=== PATIENT | female | born 1945 | race Caucasian/White ===

== ENCOUNTER 2019-06-22 22:15 | Emergency (ER) | payer OTHER ==
--- NOTE | 2019-06-22 22:33 | ED Fall/Injury ---
General Stated Complaint: HIP PAIN Source: patient, EMS Exam Limitations: no limitations History of Present Illness Date Seen by Provider: Jun 22, 2019 Time Seen by Provider: 22:30 Initial Comments Presents via EMS after getting a call to help her up after sliding onto the ground (states she did not fall) from sitting on the "floor cleaner". Pt denies injury, but states she normally can not bear weight on her legs because of bad arthritis. Has also been living in her car since October of 2018. She is diabetic on insulin and has HTN. She is compliant w taking medication and seeing her PCP. No other complaints. She states she did not want to come to the ER, but after she was helped up, EMS staff offered to bring her in to check her vitals, etc. She is without any (acute) complaint. Only chronic leg/ knee pain that is not new. Allergies and Home Medications Patient Home Medication List Home Medication List Reviewed: Yes Review of Systems Review of Systems Constitutional: see HPI; No diaphoresis, No dizziness, No fever, No malaise; weakness Respiratory: No cough, No short of breath Cardiovascular: No chest pain, No palpitations Gastrointestinal: No abdominal pain, No loss of appetite, No vomiting Musculoskeletal: No back pain; joint pain (b/l hips and knees (chronic)); No neck pain Past Icegadg-Nictzk-Iptzns Hx Past Med/Social Hx: Reviewed Nursing Past Med/Soc Hx Patient Social History Recent Foreign Travel: No Contact w/Someone Who Travel: No Physical Exam Vital Signs Capillary Refill : Height, Weight, BMI Height: '" Weight: lbs. oz. kg; BMI Method: General Appearance: no apparent distress, obese, other (very disheveled and soiled appearance w next to no personal hygiene) Neck: non-tender, supple Cardiovascular: regular rate, rhythm, no edema Respiratory: chest non-tender, lungs clear Gastrointestinal: non tender, soft Back: no CVA tenderness, no vertebral tenderness Extremities: normal range of motion, non-tender, normal inspection, no pedal edema, no calf tenderness, normal capillary refill, pelvis stable; No calf tenderness, No pedal edema, No slow capillary refill, No swelling; other (symmetrical weakness and atrophy of LE ms. Able to flex hip joints and lift both legs off table. NO pain w passive ROM b/l LE's. NO significant pain or localizing pain of LE's or pelvis.) Neurologic/Psychiatric: no motor/sensory deficits, alert, normal mood/affect Skin: warm/dry; No jaundice Departure Impression Primary Impression: Weakness generalized Additional Impression: Arthritis Disposition: 01 HOME, SELF-CARE Condition: Stable Departure-Patient Inst. Referrals: NO,LOCAL PHYSICIAN (PCP/Family) Primary Care Physician Patient Instructions: Generalized Weakness, Osteoarthritis (DC) Add. Discharge Instructions: Call your doctor Monday to arrange for a follow-up appointment CHEYENNE NAVARRETE DO Jun 22, 2019 22:33
[2019-06-22 22:40] VITALS: BP 178/78
[2019-06-22] MEDS ORDERED: diphenhydrAMINE 25 MG TAB (BENADRYL) PO ONE (22:45)
--- NOTE | 2019-06-22 22:45 | NUR ---
PT. IS UNKEPT AND HAS MUD AND DIRT ALL OVER HER WELL DOG HAIR. 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
== END 2019-06-22 22:40 | disposition home or self-care (01) ==
LOC: ER FS 22:25
DX: R53.1 Weakness (principal); M19.91 Primary osteoarthritis, unspecified site; E11.9 Type 2 diabetes mellitus without complications; I10 Essential (primary) hypertension; Z79.4 Long term (current) use of insulin
CPT/HCPCS: 99283

== ENCOUNTER 2019-09-12 18:46 | Emergency (ER) | payer MEDICARE ==
[~2019-09-12] VITALS: Ht 149.9 cm; Wt 82.6 kg
--- OUTSIDE RECORDS SUMMARY | 2019-09-12 18:51 | XMS REPORT ---
Author Author Karley WASHINGTON Organization [facility] Address [address] [place] [id number] Care Team Providers Care Cuff Setter Lockstitch Name Role Phone FLORENTINO WASHINGTON Unavailable PROBLEMS Type Condition ICD9-CM Code [id number] Code Onset Dates Condition S tatus SNOMED Code Problem Venous insufficiency (chronic) (peripheral) I87.2 Active 16409641 Problem Essential hypertension I10 Active 44820700 Problem Type 2 diabetes mellitus wit hout complication, without long-term current use of insulin E11.9 Active 406046860 Problem Hypothyroidism, unspecified type E03.9 Active 50479558 Problem 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 of skin L97.801 Active 062875596 Problem Type 2 diabetes mellitus wit h other skin ulcer, without long-term current use of insulin E11.622 Active 60872 9009 Problem Type 2 diabetes mellitus wit h diabetic neuropathy, unspecified whether terminal manager insulin use E11.40 Active 129016 718914067 Problem Morbid (severe) obesity due to excess calories E66 .01 Active 423059672 Problem Chronic venous insufficiency I87.2 A ctive 40220082 Problem Ulcer of left lower extremity, limited to breakdown of ski n L97.921 Active 772723256 ALLERGIES Substance Reaction Event Type Date Status allergic to some blood pressure pills Unknown Non Drug Allergy May, Active ENCOUNTERS Encounter Location Date Diagnosis [facility] [address] [facility] [id number] [address] [place] [address] Nov, [address] [address] Oct, [facility] [address] [address] Aug [facility] [address] [facility] [id number] [address] [place] [address] Aug, Edema of foot R60.0 ; Onycho mycosis B35.1 and Type 2 diabetes mellitus with diabetic neuropathy, unspecified whether terminal manager insulin use E11.40 [place] [address] [place] [address] Jun [place] [address] [place] [address] Jun Cellulitis of left lower extremity L03.116 and Chronic venous insufficiency I87.2 [place] [address] [place] [address] Jun [place] [address] [place] [address] Jun [place] [address] [place] [address] Jun [place] [address] [place] [address] May Cellulitis of left lower extremity L03.116 and Lower extremity edema R60.0 [place] [address] [place] [address] May Hypothyroidism, unspecified type E03.9 [facility] [address] [facility] [id number] [address] [place] [address] May, [address] [address] [address] May Cellulitis of left lower extremity L03.[address] [address] May, [address] [address] May, Type 2 diabetes mellitus without complic ation, without long-term current use of insulin E11.9 ; Lower extremity edema R60.0 ; Chronic venous insufficiency I87.2 ; Ulcer of left lower extremity, limited to breakdown of skin L97.921 ; Cellulitis of left lower extremity L03.116 and Encounter for immunization Z23 [address] [address] [address] May [place] [address] [place] [address] May Cellulitis of left lower extremity L03.[address] [address] Apr Cellulitis of left lower extremity L03.116 ; Essential hypertension I10 and Type 2 diabetes mellitus without complication, without long-term current use of insulin E11.9 [place] [address] [place] [address] [address] Apr Cellulitis of left lower extremity L03.116 ; Venous insufficiency (chronic) (peripheral) I87.2 and Non-pressure chronic ulcer of other part of unspecified lower leg limited to breakdown of skin L97.[address] [address] [address] [address] Mar Bronchitis J40 and Cellulitis of left lower extremity L03.116 [facility] [address] [id number] [address] [place] [id number] Oct, Encounter for dental examina tion Z01.20 IMMUNIZATIONS No Known Immunizations SOCIAL HISTORY Never Assessed REASON FOR VISIT Leg, Both legs are blistered and itching, pt has seen Chris. They cultured b ut she has not heard anything. HEIDI Moses PLAN OF CARE Activity Details Follow Up 1 Week Reason: VITAL SIGNS Height 60 in 2018-06-05 Weight 182 lbs 2018-06-05 Temperature 98.0 degrees Fahrenheit 2018-06-05 Heart Rate 80 bpm 2018-06-05 Respiratory Rate 16 2018-06-05 BMI 35.54 kg/m2 2018-06-05 Blood pressure systolic 120 mmHg 2018-06-05 Blood pressure diastolic 70 mmHg 2018-06-05 MEDICATIONS Medication Instructions Dosage Frequency Start Date End Date Duration S tatus Sitagliptin Phosphate 100 MG Orally Once a day 1 tablet 24h Active Januvia 100 MG Orally Once a day 1 tablet 24h May, 3 0 day(s) Active Losartan Potassium 50 MG Orally Once a day 1 tablet 24h Active Bactrim DS 800-160 mg Orally Twice a day 1 tablet 12h May, 10 day(s) Active Verapamil HCl 120 MG Orally Three times a day 1 tablet 8h Active Keflex 500 MG Orally every 12 hrs 1 capsule 12h May, 10 day(s) Active DiphenhydrAMINE HCl (Sleep) 25 MG Orally Once a day 1 tablet at bedtim e 24h Active Triamcinolone Acetonide 0.1 % Externally Twice a day 1 appli cation to affected area 12h Active Levothyroxine Sodium 100 MCG Active Gabapentin 100 MG Active Spironolactone 25 MG Orally BID 2 tabs 12h May, 30 day(s) Active Hydrochlorothiazide 25 MG Orally Once a day 1 tablet 24h Active Olopatadine HCl 0.2 % Ac tive Fluticasone Propionate (Inhal) 50 MCG/BLIST Inhalation Twice a day 1 puff 12h Active Metformin HCl 500 MG Orally 2 times a day 1 tablet with a meal 12h 30 day(s) Active Spironolactone 50 MG Orally 2 times a day 1 tablet with food 12h May, 30 day(s) Active Glucose Blood - as directed Once a day as directed 24h May, 30 days Active RESULTS No Results PROCEDURES Procedure Date Ordered Result Body Site VENIPUNCT, ROUTINE* June 05, 2018 LAB NOT BILLED BY [facility] June 05, 2018 INSTRUCTIONS MEDICATIONS ADMINISTERED No Known Medications MEDICAL (GENERAL) HISTORY Type Description Date Medical History diabetes type II Medical History htn Medical History bronchitis Medical History hypothyroiditis Medical History hepatitus C Medical History Uterine Cancer Medical History Scriosis of the Liver - arrested Medical History hives from nerves Medical History sleep apnea Medical History carpal [place] bilaterally no surgery Surgical History appendectomy Surgical History hysterectomy Surgical History gallbladder Surgical History miniscus repair of the knees bilaterally Hospitalization History only for above surgeries
--- OUTSIDE RECORDS SUMMARY | 2019-09-12 18:51 | XMS REPORT ---
Author Author Karley WASHINGTON Organization [facility] Address [address] [address] Care Team Providers Care Natural Resource Economist Name Role Phone FLORENTINO WASHINGTON Unavailable PROBLEMS Type Condition ICD9-CM Code ALI61-QT Code Onset Dates Condition S tatus SNOMED Code Problem Essential hypertension I10 Active 21306602 Problem Morbid (severe) obesity due to excess calories E66 .01 Active 877922058 Problem Type 2 diabetes mellitus wit h diabetic neuropathy, unspecified whether intermediate school teacher insulin use E11.40 Active 243188 456195299 Problem 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 of skin L97.801 Active 387731848 Problem Hammer toe, unspecified laterality M20.40 Active 718383743 Problem Type 2 diabetes mellitus wit hout complication, without long-term current use of insulin E11.9 Active 093765909 Problem COPD exacerbation J44.1 Active 19 2551641 Problem Venous insufficiency (chronic) (peripheral) I87.2 Active 06169512 Problem Ulcer of left lower extremity, limited to breakdown of ski n L97.921 Active 129632486 Problem Chronic venous insufficiency I87.2 A ctive 12089503 Problem Hypothyroidism, unspecified type E03.9 Active 98098982 Problem Type 2 diabetes mellitus wit h other skin ulcer, without long-term current use of insulin E11.622 Active 99341 9009 ALLERGIES Substance Reaction Event Type Date Status allergic to some blood pressure pills Unknown Non Drug Allergy May, Active ENCOUNTERS Encounter Location Date Diagnosis [facility] [address] [facility] [place] [address] Apr, [facility] [address] [facility] [id number] [place] [address] Apr, [place] [address] [place] [address] Mar, [address] [place] [address] Mar, [facility] [address] [place] [address] Feb, COPD exacerbation J44.1 ; Vi ral URI J06.9 and Cough R05 [facility] [address] [place] [id number] [place] [address] Jan, Type 2 diabetes mellitus with diabetic neuropathy, unspecified whether correction insulin use E11.40 [address] [place] [address] Dec, Type 2 diabetes mellitus wit h diabetic neuropathy, unspecified whether intermediate school teacher insulin use E11.40 and Influenza vaccination declined Z28.21 [address] [place] [address] Dec, [address] [place] [address] Dec, [facility] [address] [facility] [place] [address] Dec, [address] [place] [address] Dec, [address] [place] [address] Dec, Type 2 diabetes mellitus wit h diabetic neuropathy, unspecified whether intermediate school teacher insulin use E11.40 ; Muscle cramp R25.2 and Influenza vaccine refused Z28.21 [facility] [address] [place] [id number] [address] Nov, Abnormal CBC R79.89 [facility] [address] [facility] [place] [address] Nov, Onychomycosis B35.1 ; Type 2 diabetes me llitus with other skin ulcer, without long-term current use of insulin E11.622 and Hammer toe, unspecified laterality M20.[address] [place] [address] 05 Nov, 2018 Type 2 diabetes mellitus wit h diabetic neuropathy, unspecified whether intermediate school teacher insulin use E11.40 and Hypothyroidism, unspecified type E03.9 [facility] [address] [facility] [address] [place] [address] 05 Nov, [address] [facility] [address] [facility] [id number] [place] [address] Nov, [place] [address] [place] [address] Aug, [facility] [address] [place] [id number] [place] [address] Aug, Edema of foot R60.0 ; Onychomycosis B35. 1 and Type 2 diabetes mellitus with diabetic neuropathy, unspecified whether intermediate school teacher insulin use E11.40 [place] [address] [place] [address] Jun, [place] [address] [place] [address] Jun, Cellulitis of left lower extremity L03.116 and Chronic venous insufficiency I87.2 [place] [address] [place] [address] Jun, [place] [address] [place] [address] Jun, [place] [address] [place] [address] Jun, [place] [address] [place] [address] May, Cellulitis of left lower extremity L03.116 and Lower extremity edema R60.0 [place] [address] [place] [address] May, Hypothyroidism, unspecified type E03.9 [facility] [address] [place] [id number] [place] [address] May, [place] [address] [place] [address] May, [facility] [address] [place], [place] [id number] [place] [address] May, Cellulitis of left lower extremity L03.116 [facility] [address] [facility] [place] [address] May, [address] [place] [address] May, Type 2 diabetes mellitus wit hout complication, without long-term current use of insulin E11.9 ; Lower extremity edema R60.0 ; Chronic venous insufficiency I87.2 ; Ulcer of left lower extremity, limited to breakdown of skin L97.921 ; Cellulitis of left lower extremity L03.116 and Encounter for immunization Z23 [place] [address] [place] [address] May, [place] [address] [place] [address] May, [place] [address] [place] [address] May, Cellulitis of left lower extremity L03.116 [place] [address] [place] [address] 9 Apr, Cellulitis of left lower extremity L03.116 ; Essential hypertension I10 and Type 2 diabetes mellitus without complication, without long-term current use of insulin E11.9 [place] [address] [place] [address] Apr, [place] [address] [place] [address] 9 Apr, Cellulitis of left lower extremity L03.116 ; Venous insufficiency (chronic) (peripheral) I87.2 and Non-pressure chronic ulcer of other part of unspecified lower leg limited to breakdown of skin L97.801 [place] [address] [place] [address] Apr, [place] [address] [place] [address] 9 Mar, [facility] [address] [place] [id number] [place] [address] Mar, Bronchitis J40 and Cellulitis of left lower extremity L03.116 [facility] [address] [id number] [place] [id number] Oct, Encounter for dental examination Z01.20 IMMUNIZATIONS No Known Immunizations SOCIAL HISTORY Never Assessed REASON FOR VISIT F/U leg - JÚNIOR acosta PLAN OF CARE Activity Details Follow Up 2 Months Reason:labs VITAL SIGNS Height 60 in 2018-06-12 Weight 183 lbs 2018-06-12 Temperature 97.6 degrees Fahrenheit 2018-06-12 Heart Rate 84 bpm 2018-06-12 Respiratory Rate 14 2018-06-12 BMI 35.74 kg/m2 2018-06-12 Blood pressure systolic 122 mmHg 2018-06-12 Blood pressure diastolic 68 mmHg 2018-06-12 MEDICATIONS Medication Instructions Dosage Frequency Start Date End Date Duration S tatus Glucose Blood - as directed Once a day as directed 24h May, 30 days Active Spironolactone 50 MG Orally 2 times a day 1 tablet with food 12h May, 30 day(s) Active Levothyroxine Sodium 100 MCG Active Verapamil HCl 120 MG Orally Three times a day 1 tablet 8h Active Keflex 500 MG Orally every 12 hrs 1 capsule 12h May, 10 day(s) Active Spironolactone 25 MG Orally BID 2 tabs 12h May, 30 day(s) Active Misc. Devices - as directed May, Active Hydrochlorothiazide 25 MG Orally Once a day 1 tablet 24h Active Sitagliptin Phosphate 100 MG Orally Once a day 1 tablet 24h Active Bactrim DS 800-160 mg Orally Twice a day 1 tablet 12h May, 10 day(s) Active Losartan Potassium 50 MG Orally Once a day 1 tablet 24h Active DiphenhydrAMINE HCl (Sleep) 25 MG Orally Once a day 1 tablet at bedtim e 24h Active Gabapentin 100 MG Active Olopatadine HCl 0.2 % Ac tive Triamcinolone Acetonide 0.1 % Externally Twice a day 1 appli cation to affected area 12h Active Metformin HCl 500 MG Orally 2 times a day 1 tablet with a meal 12h 30 day(s) Active Fluticasone Propionate (Inhal) 50 MCG/BLIST Inhalation Twice a day 1 puff 12h Active Januvia 100 MG Orally Once a day 1 tablet 24h 13 May, 2018 3 0 day(s) Active Levothyroxine Sodium 125 MCG Orally Once a day 1 tablet on an empty stomach in the morning 24h May, 30 day(s) Active RESULTS No Results PROCEDURES Procedure Date Ordered Result Body Site [facility] VISIT ESTABLISHED PATIENT June 12, 2018 INSTRUCTIONS MEDICATIONS ADMINISTERED No Known Medications [...]
--- OUTSIDE RECORDS SUMMARY | 2019-09-12 18:51 | XMS REPORT ---
Author Karley Fernández [facility] eClinicalWorks Address Unknown Phone Unavailable Care Team Providers Care Ocean Rescue Lieutenant Name Role Phone JOHNIE JACOBSON CP Unavailable Allergies, Adverse Reactions, Alerts Substance Reaction Event Type N.K.D.A. Info Not Available Non Drug Allergy Problems Problem Type Condition Code Onset Dates Condition Statu s Assessment Encounter for dental examination Z01.20 Active Problem Encounter for dental examination Z01.20 Active Medications Medication Code System Code Instructions Start Date End Date Status Dosage Sitagliptin Phosphate [facility] [address]-49 100 MG Orally Once a day 1 tablet Verapamil HCl [facility] [address]-06 120 MG Orally Three times a day 1 tablet Olopatadine HCl [facility] [address]-87 0.2 % Ophthalmic not defined DiphenhydrAMINE HCl (Sleep) [facility] [address]-44 25 MG Orally Once a da y 1 tablet at bedtime Fluticasone Propionate (Inhal) [facility] [address]-52 5 0 MCG/BLIST Inhalation Twice a day 1 [place] [address]-77 50 MG Orally Once a day 1 tablet Hydrochlorothiazide [facility] [address]-02 25 MG Orally Once a day 1 tablet Levothyroxine Sodium [facility] [address]-00 100 MCG Orally not defined Gabapentin [facility] [address]-92 100 MG Orally not defined Triamcinolone Acetonide [facility] [address]-30 0.1 % Externally Twice a d ay 1 application to affected area Procedures Procedure Coding System Code Date INTRAORL-PERIAPICAL EA ADD FILM CPT-4 D0230 Nov 05, 2015 INTRAORL-PERIAPICAL EA ADD FILM CPT-4 D0230 Nov 05, 2015 INTRAORL-PERIAPICAL 1 FILM 54730 CPT-4 D0220 Nov 05, 2015 BITEWINGS - FOUR FILMS CPT-4 D0274 Nov 04, 2 016 Vital Signs Date/Time: Nov 05, 2015 Blood Pressure Diastolic 70 mmHg Blood Pressure Systolic 125 mmHg Results No Known Results Summary Purpose eClinicalWorks Submission
--- OUTSIDE RECORDS SUMMARY | 2019-09-12 18:52 | XMS REPORT | Continuity of Care Document ---
Author Organization Unknown Address Unknown Phone Unavailable Allergies Active Description Code Type Severity Reaction Onset Reported/Identified Relationship to Patient Clinical Status Yes No Allergy Information Available [id number] Drug Allergy Unknown N/A 020 Medications There is no data. Problems Date Dx Coded Attending Type Code Diagnosis Diagnosed By 06/22/2019 ROVENSTINE DOCHEYENNE Ot E11.9 TYPE 2 DIABETES MELLITUS WITHOUT COMPLIC 06/22/2019 ROVENSTINE DO, CHEYENNE Francisco Ot I10 ESSENTIAL (PRIMARY) HYPERTENSION 06/22/2019 ROVENSTINE DO, CHEYENNE Francisco Ot M19.91 PRIMARY OSTEOARTHRITIS, UNSPECIFIED SITE 06/22/2019 ROVENSTINE DO, CHEYENNE L Ot M25.551 PAIN IN RIGHT HIP 06/22/2019 ROVENSTINE DO, CHEYENNE L Ot R53.1 WEAKNESS 06/22/2019 ROVENSTINE DO, CHEYENNE L Ot Z79.4 LONGTERM (CURRENT) USE OF INSULIN 06/24/2019 ROVENSTINE DO, CHEYENNE Francisco Ot E11.9 TYPE 2 DIABETES MELLITUS WITHOUT COMPLIC 06/24/2019 ROVENSTINE DO, CHEYENNE L Ot I10 ESSENTIAL (PRIMARY) HYPERTENSION 06/24/2019 ROVENSTINE DO, CHEYENNE L Ot M19.91 PRIMARY OSTEOARTHRITIS, UNSPECIFIED SITE 06/24/2019 ROVENSTINE DO, CHEYENNE L Ot M25.551 PAIN IN RIGHT HIP 06/24/2019 ROVENSTINE DO, CHEYENNE L Ot R53.1 WEAKNESS 06/24/2019 ROVENSTINE DO, CHEYENNE L Ot Z79.4 LONGTERM (CURRENT) USE OF INSULIN Procedures There is no data. Results Test Result Range CULTURE, ANAEROBIC AND AEROBIC - 9 10:35 CULTURE, ANAEROBIC BACTERIA W/GRAM STAIN SEE NOTE NRG CULTURE, AEROBIC BACTERIA SEE NOTE NRG TSH w/ FREE T4 - 06/05/18 08:40 TSH 10.44 mIU/L 0.40-4.50 T4, FREE 0.9 ng/dL 0.8-1.8 HEPATITIS PROFILE - 06/05/18 08:40 HEPATITIS A IGM NON-REACTIVE NON-REACTI VE HEPATITIS B SURFACE ANTIGEN NON-REACTIVE NON-REACTIVE HEPATITIS B CORE ANTIBODY (IGM) NON-REACTIVE NON-REACTIVE HEPATITIS C ANTIBODY NON-REACTIVE NON-R EACTIVE SIGNAL TO CUT-OFF 0.07 <1.00 BMP - 06/05/18 08:40 GLUCOSE 147 mg/dL 65-99 UREA NITROGEN (BUN) 17 mg/dL 7-25 CREATININE 0.56 mg/dL 0.60-0.93 eGFR NON-AFR. DJIBOUTIAN 93 mL/min/1.73m2 > OR = 60 eGFR 107 mL/min/1.73m2 > OR = 60 BUN/CREATININE RATIO 30 (calc) 6-22 SODIUM 140 mmol/L 135-146 POTASSIUM 4.1 mmol/L 3.5-5.3 CHLORIDE 103 mmol/L 98-110 CARBON DIOXIDE 28 mmol/L 20-32 CALCIUM 8.8 mg/dL 8.6-10.4 CULTURE, ANAEROBIC AND AEROBIC - 9 16:26 CULTURE, ANAEROBIC BACTERIA W/GRAM STAIN SEE NOTE NRG CULTURE, AEROBIC BACTERIA SEE NOTE NRG CMP - 11/22/18 11:29 GLUCOSE 149 mg/dL 65-99 UREA NITROGEN (BUN) 17 mg/dL 7-25 CREATININE 0.92 mg/dL 0.60-0.93 eGFR NON-AFR. DJIBOUTIAN 61 mL/min/1.73m2 > OR = 60 eGFR 71 mL/min/1.73m2 > OR = 60 BUN/CREATININE RATIO NOT APPLICABLE (calc) 6-22 SODIUM 139 mmol/L 135-146 POTASSIUM 4.7 mmol/L 3.5-5.3 CHLORIDE 102 mmol/L 98-110 CARBON DIOXIDE 27 mmol/L 20-32 CALCIUM 9.5 mg/dL 8.6-10.4 PROTEIN, TOTAL 7.8 g/dL 6.1-8.1 ALBUMIN 3.6 g/dL 3.6-5.1 GLOBULIN 4.2 g/dL (calc) 1.9-3.7 ALBUMIN/GLOBULIN RATIO 0.9 (calc) 1.0-2. 5 BILIRUBIN, TOTAL 0.9 mg/dL 0.2-1.2 ALKALINE PHOSPHATASE 146 U/L 33-130 AST 42 U/L 10-35 ALT 28 U/L 6-29 CBC - 11/22/18 11:29 WHITE BLOOD CELL COUNT 5.8 Thousand/uL 3 .8-10.8 RED BLOOD CELL COUNT 4.81 Million/uL 3.8 0-5.10 HEMOGLOBIN 16.2 g/dL 11.7-15.5 HEMATOCRIT 48.0 % 35.0-45.0 MCV 99.8 fL 80.0-100.0 MCH 33.7 pg 27.0-33.0 MCHC 33.8 g/dL 32.0-36.0 RDW 12.9 % 11.0-15.0 PLATELET COUNT 89 Thousand/uL 140-400 MPV 12.0 fL 7.5-12.5 ABSOLUTE NEUTROPHILS 3068 cells/uL 1500- 7800 ABSOLUTE LYMPHOCYTES 1531 cells/uL 850-3 900 ABSOLUTE MONOCYTES 655 cells/uL 200-950 ABSOLUTE EOSINOPHILS 505 cells/uL 15-500 ABSOLUTE BASOPHILS 41 cells/uL 0-200 NEUTROPHILS 52.9 % NRG LYMPHOCYTES 26.4 % NRG MONOCYTES 11.3 % NRG EOSINOPHILS 8.7 % NRG BASOPHILS 0.7 % NRG A1C - 12/27/18 13:16 HEMOGLOBIN A1c 8.8 % of total Hgb <5.7 TSH w/ FREE T4 - 06/26/19 11:40 TSH 11.01 mIU/L 0.40-4.50 T4, FREE 1.1 ng/dL 0.8-1.8 VITAMIN D, 25-H - 06/26/19 11:40 VITAMIN D,25-OH,TOTAL,IA 12 ng/mL 30-10 0 Encounters ACCT No. Visit Date/Time Discharge Status Pt. Type Provider Facility Loc./Unit Complaint [id number] 06/26/2019 10:40:00 06/26/2019 23:59: 59 CLS Outpatient [facility] [id number] 06/26/2019 10:40:00 Document Registration [id number] 12/27/2018 11:00:00 Document Registration [id number] 11/22/2018 09:00:00 Document Registration [id number] 07/11/2018 15:00:00 Document Registration [id number] 06/05/2018 10:40:00 Document Registration [id number] 05/30/2018 09:00:00 Document Registration [id number] 06/22/2019 22:25:00 020 22:40:00 DIS Emergency CHEYENNE NAVARRETE DO [facility] ER FS HIP PAIN
[2019-09-12 19:17] LABS: BASOPHILS % (AUTO) 1 % (0-10); EOSINOPHILS % (AUTO) 5 % (0-10); HEMATOCRIT 40 % (35-52); HEMOGLOBIN 13.9 G/DL (11.5-16.0); LYMPHOCYTES % (AUTO) 18 % (12-44); MEAN CORPUSCULAR HEMOGLOBIN 34 PG (25-34); MEAN CORPUSCULAR HGB CONC 35 G/DL (32-36); MEAN CORPUSCULAR VOLUME 99 FL (80-99); MEAN PLATELET VOLUME 11.5 FL (7.4-10.4); MONOCYTES % (AUTO) 10 % (0-12); NEUTROPHILS # (AUTO) 3.7 X 10^3 (1.8-7.8); NEUTROPHILS % (AUTO) 66 % (42-75); PLATELET COUNT 73 10^3/uL (130-400); RED CELL DISTRIBUTION WIDTH 13.8 % (10.0-14.5); WHITE BLOOD COUNT 5.6 10^3/uL (4.3-11.0)
[2019-09-12 19:18] LABS: EOSINOPHILS # (AUTO) 0.3 10^3/uL (0.0-0.3); MONOCYTES # (AUTO) 0.6 X 10^3 (0.0-1.0)
[2019-09-12 19:26] LABS: INR 1.1 (0.8-1.4); PROTHROMBIN TIME PATIENT 14.9 SEC (12.2-14.7)
[2019-09-12 19:38] LABS: BACTERIA,URINE LARGE /HPF; BILIRUBIN,URINE 2+ (NEGATIVE); CLARITY,URINE TURBID; COLOR,URINE BROWN; GLUCOSE, URINE (UA) 1+ (NEGATIVE); KETONES,URINE TRACE (NEGATIVE); LEUKOCYTE ESTERASE ,URINE 2+ (NEGATIVE); NITRITE,URINE POSITIVE (NEGATIVE); PH,URINE 8.5 (5-9); PROTEIN,URINE 3+ (NEGATIVE); RBC,URINE >100 /HPF; WBC,URINE TNTC /HPF
[2019-09-12 19:39] LABS: ALANINE AMINOTRANSFERASE 30 U/L (0-55); ALBUMIN 2.7 GM/DL (3.2-4.5); ALKALINE PHOSPHATASE 128 U/L (40-136); BILIRUBIN,TOTAL 0.8 MG/DL (0.1-1.0); BUN/CREATININE RATIO 36; CALCIUM 8.4 MG/DL (8.5-10.1); CARBON DIOXIDE 23 MMOL/L (21-32); CHLORIDE 104 MMOL/L (98-107); CREATININE SERUM 0.53 MG/DL (0.60-1.30); GFR ESTIMATED > 60; GLUCOSE 283 MG/DL (70-105); POTASSIUM 3.5 MMOL/L (3.6-5.0); SODIUM 140 MMOL/L (135-145); TOTAL PROTEIN 5.7 GM/DL (6.4-8.2)
--- NOTE | 2019-09-12 19:43 | ED General ---
General Chief Complaint: Female Reproductive Stated Complaint: VAGINAL BLEEDING Nursing Triage Note: PT TO ROOM FS06 VIA EMS WITH C/O VAGINAL BLEEDING. PT REPORTS HAVING CANCER IN THE LIVER THAT HAS "ATE ITS WAY INTO" HER VAGINAL AREA. Nursing Sepsis Screen: No Definite Risk Source of Information: Patient Exam Limitations: No Limitations History of Present Illness Date Seen by Provider: Sep 12, 2019 Time Seen by Provider: 18:50 Initial Comments Patient is a 73-year-old female with history of liver cancer with metastatic disease who presents with suprapubic pain and dysuria. Patient reports blood in her diaper. Denies fever chills, black pain. No nausea vomiting or sweats. No history of kidney stones. Patient states she has had prior episodes of vaginal bleeding and cystitis. Previous hysterectomy. Patient is not on blood thinners. No other acute symptoms or complaints. Timing/Duration: 4-6 Hours Severity: Mild Modifying Factors: improves with Other Associated Systoms: Denies Symptoms Allergies and Home Medications Allergies Coded Allergies: No Known Drug Allergies (Unverified , 09/12/19) Patient Home Medication List Home Medication List Reviewed: Yes Review of Systems Review of Systems Constitutional: see HPI EENTM: see HPI Respiratory: see HPI Cardiovascular: see HPI Gastrointestinal: see HPI Genitourinary: see HPI Musculoskeletal: see HPI Skin: see HPI Psychiatric/Neurological: See HPI Hematologic/Lymphatic: See HPI Immunological/Allergic: see HPI Past Kugsfif-Tdihnb-Vrzrvr Hx Past Med/Social Hx: Reviewed Nursing Past Med/Soc Hx Patient Social History Alcohol Use: Denies Use Recreational Drug Use: No Smoking Status: Former Smoker Type Used: Cigars 2nd Hand Smoke Exposure: No Recent Foreign Travel: No Contact w/Someone Who Travel: No Recent Infectious Disease Expo: No Recent Hopitalizations: No Physical Abuse: No Sexual Abuse: No Mistreated: No Fear: No Seasonal Allergies Seasonal Allergies: No Past Medical History Surgeries: Yes Adenoidectomy, Gallbladder, Hysterectomy, Orthopedic, Tonsillectomy Respiratory: Yes Sleep Apnea Currently Using CPAP: No Currently Using BIPAP: No Cardiac: Yes Hypertension Neurological: Yes Stroke Genitourinary: No Gastrointestinal: Yes (HEP C) Hepatitis Musculoskeletal: Yes (BILAT KNEE SURGERY) Endocrine: Yes Diabetes, Insulin dep HEENT: No Cancer: Yes Liver Did You Recieve Any Treatments: No Psychosocial: Yes Anxiety Integumentary: No Blood Disorders: No Physical Exam Vital Signs Vital Signs - First Documented 09/12/19 18:50 Temp 37.0 Pulse 109 Resp 21 B/P (MAP) 117/61 (79) O2 Delivery Room Air Capillary Refill : Less Than 3 Seconds Height, Weight, BMI Height: '" Weight: lbs. oz. kg; 36.00 BMI Method: General Appearance: No Apparent Distress, WD/WN, Anxious Eyes: Bilateral Eye Normal Inspection, Bilateral Eye PERRL, Bilateral Eye EOMI HEENT: PERRL/EOMI, TMs Normal, Normal ENT Inspection Neck: Full Range of Motion, Normal Inspection, Supple Respiratory: Lungs Clear Cardiovascular: Regular Rate, Rhythm Gastrointestinal: Normal Bowel Sounds, Soft, Tenderness (suprapubic) Back: Normal Inspection Neurologic/Psychiatric: Alert, Oriented x3 Skin: Other (brawny) Focused Exam Sepsis Stage: Ruled Out Progress/Results/Core Measures Suspected Sepsis Recent Fever Within 48 Hours: No Infection Criteria Present: None New/Unexplained Altered Menta: No Sepsis Screen: No Definite Risk SIRS Temperature: Pulse: 109 Respiratory Rate: 21 Laboratory Tests 09/12/19 19:06: White Blood Count 5.6 Blood Pressure 117 /61 Mean: 79 Laboratory Tests 09/12/19 19:06: Creatinine 0.53L, INR Comment 1.1, Platelet Count 73L, Total Bilirubin 0.8 Results/Orders Lab Results Laboratory Tests Test 09/12/19 17:24 09/12/19 19:06 Range/Units Urine Color BROWN H Urine Clarity TURBID Urine pH 8.5 5-9 Urine Specific [place] 1.015 L 1.016-1.022 Urine Protein 3+ H NEGATIVE Urine Glucose (UA) 1+ H NEGATIVE Urine Ketones TRACE H NEGATIVE Urine Nitrite POSITIVE H NEGATIVE Urine Bilirubin 2+ H NEGATIVE Urine Urobilinogen 4.0 < = 1.0 MG/DL Urine Leukocyte Esterase 2+ H NEGATIVE Urine RBC (Auto) 3+ H NEGATIVE Urine RBC >100 H /HPF Urine WBC TNTC H /HPF Urine Crystals NONE /LPF Urine Bacteria LARGE H /HPF Urine Casts NONE /LPF Urine Mucus NEGATIVE /LPF Urine Culture Indicated YES White Blood Count 5.6 4.3-11.0 10^3/uL Red Blood Count 4.07 L 4.35-5.85 10^6/uL Hemoglobin 13.9 11.5-16.0 G/DL Hematocrit 40 35-52 % Mean Corpuscular Volume 99 80-99 FL Mean Corpuscular Hemoglobin 34 25-34 PG Mean Corpuscular Hemoglobin Concent 35 32-36 G/DL Red Cell Distribution Width 13.8 10.0-14.5 % Platelet Count 73 L 130-400 10^3/uL Mean Platelet Volume 11.5 H 7.4-10.4 FL Neutrophils (%) (Auto) 66 42-75 % Lymphocytes (%) (Auto) 18 12-44 % Monocytes (%) (Auto) 10 0-12 % Eosinophils (%) (Auto) 5 0-10 % Basophils (%) (Auto) 1 0-10 % Neutrophils # (Auto) 3.7 1.8-7.8 X 10^3 Lymphocytes # (Auto) 1.0 1.0-4.0 X 10^3 Monocytes # (Auto) 0.6 0.0-1.0 X 10^3 Eosinophils # (Auto) 0.3 0.0-0.3 10^3/uL Basophils # (Auto) 0.0 0.0-0.1 10^3/uL Prothrombin Time 14.9 H 12.2-14.7 SEC INR Comment 1.1 0.8-1.4 Activated Partial Thromboplast Time 31 24-35 SEC Sodium Level 140 135-145 MMOL/L Potassium Level 3.5 L 3.6-5.0 MMOL/L Chloride Level 104 98-107 MMOL/L Carbon Dioxide Level 23 21-32 MMOL/L Anion Gap 13 5-14 MMOL/L Blood Urea Nitrogen 19 H 7-18 MG/DL Creatinine 0.53 L 0.60-1.30 MG/DL Estimat Glomerular Filtration Rate > 60 BUN/Creatinine Ratio 36 Glucose Level 283 H 70-105 MG/DL Calcium Level 8.4 L 8.5-10.1 MG/DL Corrected Calcium 9.4 8.5-10.1 MG/DL Total Bilirubin 0.8 0.1-1.0 MG/DL Aspartate Amino Transf (AST/SGOT) 37 H 5-34 U/L Alanine Aminotransferase (ALT/SGPT) 30 0-55 U/L Alkaline Phosphatase 128 40-136 U/L Total Protein 5.7 L 6.4-8.2 GM/DL Albumin 2.7 L 3.2-4.5 GM/DL My Orders Orders - KIM HOFFMAN DO Cbc With Automated Diff (09/12/19 18:53) Comprehensive Metabolic Panel (09/12/19 18:53) Protime With Inr (09/12/19 18:53) Partial Thromboplastin Time (09/12/19 18:53) Ua Culture If Indicated (09/12/19 18:53) Straight Cath (Urinary) (09/12/19 18:53) Ceftriaxone For Iv Use (Rocephin For I (09/12/19 19:45) Urine Culture (09/12/19 17:24) Phenazopyridine Tablet (Pyridium Tablet) (09/12/19 20:00) Ketorolac Injection (Toradol Injection) (09/12/19 20:00) Medications Given in ED Current Medications Medications Dose Ordered Sig/Flavio Route Start Time Stop Time Status Last Admin Dose Admin Ketorolac Tromethamine 30 mg ONCE ONCE IVP 09/12/19 20:00 09/12/19 20:01 DC 09/12/19 19:54 30 MG Phenazopyridine HCl 100 mg ONCE ONCE PO 09/12/19 20:00 09/12/19 20:01 DC 09/12/19 19:54 100 MG Vital Signs/I&O 09/12/19 18:50 Temp 37.0 Pulse 109 Resp 21 B/P (MAP) 117/61 (79) O2 Delivery Room Air Capillary Refill : Less Than 3 Seconds Blood Pressure Mean: 79 Departure Communication (Admissions) IV fluids, antibiotics given for treatment of urinary tract infection. Pain improved with treatment. Abx prescribed, PCP follow-up recommended for urine culture results. Return precautions reviewed Impression Primary Impression: Urinary tract infection Disposition: HOME, SELF-CARE Condition: Stable Departure-Patient Inst. Decision time for Depature: 19:42 Referrals: NO,LOCAL PHYSICIAN (PCP/Family) Primary Care Physician Patient Instructions: Urinary Tract Infection, Adult (DC) Add. Discharge Instructions: Please increase fluids and take newly prescribed medications as directed. Follow-up with your PCP in 2 days for urine culture results. Continue all other home medications as prescribed. Return to the ED if new or worsening symptoms. All discharge instructions reviewed with patient and/or family. Voiced understanding. Scripts Ciprofloxacin HCl (Cipro) 500 Mg Tablet 500 MG PO BID, #14 TAB Prov: KIM HOFFMAN DO 09/12/19 KIM HOFFMAN DO Sep 12, 2019 19:43
[2019-09-12] MEDS ORDERED: cefTRIAXone FOR IV USE 1,000 MG in WATER (STERILE) FOR INJECTION 10 ML IV SCH (19:45)
[2019-09-12] MEDS ORDERED: KETOROLAC 30 MG/ML VIAL IVP ONE (20:00)
[2019-09-12] MEDS ORDERED: PHENAZOPYRIDINE 100 MG (PYRIDIUM) TABLET PO ONE (20:00)
[2019-09-12] MEDS ORDERED: CIPR-225 PO (20:06)
[2019-09-12] MEDS ORDERED: PHEN-639 PO (20:07)
--- NOTE | 2019-09-12 20:12 | NUR ---
PT HAS ATTEMPTED MULTIPLE TIMES TO CONTACT FAMILY TO GIVE HER A RIDE HOME.
[2019-09-13 00:05] VITALS: BP 141/73
== END 2019-09-12 21:38 | disposition home or self-care (01) ==
LOC: EDUNIT# 18:46 → ER FS 18:47
DX: N39.0 Urinary tract infection, site not specified (principal); E11.9 Type 2 diabetes mellitus without complications; Z87.891 Personal history of nicotine dependence; Z85.05 Personal history of malignant neoplasm of liver; Z86.73 Personal history of transient ischemic attack (TIA), and cerebral infarction without residual deficits
CPT/HCPCS: 36415; 80053; 81000; 85025; 85610; 85730; 87077; 87088; 99283